=== PATIENT | female | born 1945 | race Caucasian/White ===

== ENCOUNTER 2022-01-23 13:31 | Outpatient (CLI) | payer MEDICARE, OTHER, SELFPAY ==
--- NOTE | 2022-01-23 13:40 | CRLHL7_ITS ---
For Patients: As a result of the Century Cures Act, medical imaging exams and procedure reports are released immediately into your electronic medical record. You may view this report before your referring provider. If you have questions, please contact your health care provider. BILATERAL MAMMOGRAM WITH COMPUTER-AIDED DETECTION TECHNIQUE: CC and MLO views were obtained. These mammographic images have been obtained using full-field digital technique. These mammographic images were interpreted with the benefit of computer-aided detection. COMPARISON FILM: 09/03/2019, 05/02/2017, 09/13/2014. FINDINGS: The breasts are heterogeneously dense, which may obscure small masses IMPRESSION: There is no radiographic evidence for malignancy. ASSESSMENT: BI-RADS Category 1: Negative RECOMMENDATION: Routine screening mammogram in 1 year. A lay language report of this examination will be provided to the patient. Harry Valera M.D. Diagnostic Radiologist [email or web address] THELMA/Dictated by: Harry Valera MD @ 01/24/2022 12:56:00 PM (Electronically Signed)
== END 2022-01-23 13:32 | disposition home or self-care (01) ==
LOC: MAMMO 13:34
PROVIDERS: PCP Internal Medicine; Visit Provider Internal Medicine
DX: Z12.31 Encounter for screening mammogram for malignant neoplasm of breast (principal); R92.8 Other abnormal and inconclusive findings on diagnostic imaging of breast
CPT/HCPCS: 77063; 77067

== ENCOUNTER 2022-11-19 11:39 | Outpatient (CLI) | payer MEDICARE, OTHER, SELFPAY ==
[2022-11-19 15:38] LABS: Basophils Percent Auto 0.2 % (0.0-3.0); Eosinophils Percent Auto 0.5 % (0.0-7.0); Hematocrit 36.4 % (33.0-51.0); Immature Granulocytes Pct Auto 0.3 %; Lymphocytes Percent Auto 22.3 % (20-44); Mean Corpuscular HGB Conc 33 gm/dL (32-36); Mean Corpuscular Hemoglobin 28 pg (26-34); Mean Corpuscular Volume 86 fL (80-100); Monocytes Percent Auto 12.7 % (0.0-11.0); Platelet Count* 328 K/uL (140-440); Red Blood Count 4.25 m/uL (4.00-5.20); White Blood Count* 11.77 K/uL (4.50-11.00)
[2022-11-19 15:47] LABS: Slide Review Reflex No
== END 2022-11-19 11:40 | disposition home or self-care (01) ==
LOC: KYNREF 11:40
PROVIDERS: PCP Internal Medicine; Visit Provider Nurse Practitioner Family
DX: R05.9 Cough, unspecified (principal); R53.83 Other fatigue; M85.80 Other specified disorders of bone density and structure, unspecified site; E78.5 Hyperlipidemia, unspecified
CPT/HCPCS: 85025

== ENCOUNTER 2023-01-30 15:00 | Outpatient (CLI) | payer MEDICARE, OTHER, SELFPAY | END 2023-01-30 15:01 | disposition home or self-care (01) | PROVIDERS: PCP Internal Medicine; Visit Provider Internal Medicine | DX: I10 Essential (primary) hypertension (principal); E78.5 Hyperlipidemia, unspecified | CPT/HCPCS: 80048 ==

== ENCOUNTER 2023-02-19 08:52 | Outpatient (CLI) | payer MEDICARE, OTHER, SELFPAY | END 2023-02-19 08:53 | disposition home or self-care (01) | LOC: NFLDREF 02-20 10:38 | PROVIDERS: PCP Internal Medicine; Referring Provider Internal Medicine; Visit Provider Internal Medicine | DX: I10 Essential (primary) hypertension (principal) | CPT/HCPCS: 80048 ==

== ENCOUNTER 2024-01-07 08:20 | Outpatient (CLI) | payer MEDICARE, OTHER, SELFPAY ==
--- OUTSIDE RECORDS SUMMARY | 2024-01-11 07:51 | XMS_ITS | Data Portability ---
Author Organization [place] - [facility], [employer] Address [address] [place] [address] Assessment Encounter Date Assessment Date Assessment LastModified by Organization Details LastModified Time 12/26/2022 12/26/2022 The patient was informed of her diagnosis as detailed down below. Informed her of treatment options at this time including: Repeat corticosteroid injection to the sinus tarsi with the understanding that this is only for acute symptom relief, casting for an AFO in the from of an Anna Marie Brace, Subiomed devices (size 7.5, small), and possible surgery in the form of a STJ fusion. The patient was informed that I would not recommend surgery at this time and she was trialed on Subiomed devices without modification and noticed an improvement in symptoms to the right foot and low back. The patient will be scheduled in the near future for a trial and modification with possible dispense ment. [email or web address] Not available 12/26/2022 15:51:47 Plan of Treatment Reminders Order Date Submit Date Provider Last Modified By Organization Details Last Modified Time Details Appointments None record ed. Lab None record ed. Referral None record ed. Procedures None record ed. Surgeries None record ed. Imaging None record ed. Medication Orders None record ed. Patient TargetsNo targets recorded. Patient InstructionsNo instructions recorded. Reason for Referral None Reported. 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; Original Code: 891817042 Origi nal Codesystem: SNOMED CT Classificati on: Medical Confirm ation Status: Confirmed Not Available [facility] 3 09:15:03 Osteoarthritis of joint of right ankle and/or foot Active 2020 Osteoarthritis of joint of right ankle and/or foot; Original Code: 9452322670 Orig inal Codesystem: SNOMED CT Classificati on: Medical Confirm ation Status: Confirmed Not Available [facility] 3 09:15:03 Hypercholester olemia Active 2020 Hypercholestero lemia; Original Code: 73915665 Origin al Codesystem: SNOMED CT Classificati on: Medical Confirm ation Status: Confirmed Not Available [facility] 3 09:15:03 Notes:Acquired unequal leg l ength Original Code: 372339395 Original Codesystem: SNOMED CT Classification: Medical Confirmation Status: Confirmed Problem Notes None recorded. Medical Equipment None Reported. Allergies No known drug allergies Medications Name Sig Start Date Stop Date Status Note LastModified by Organization Details LastModified Time azithromyc in 250 mg tablet TAKE 2 TABLETS BY MOUTH ON DAY 1, THEN 1 TABLET DAILY ON DAYS 2-5.* active Not Available Not Available No t Available prednisone 20 mg tablet TAKE ONE TABLET BY MOUTH TWICE DAILY FOR 5 DAYS* active Not Available Not Available No t Available simvastati n 10 mg tablet TAKE HALF TABLET BY MOUTH DAILY* active Not Available Not Available No t Available valsartan 80 mg-hydroch lorothiazi de 12.5 mg tablet TAKE ONE TABLET BY MOUTH ONE TIME DAILY* active Not Available Not Available No t Available simvastati n 5 mg tablet TAKE ONE TABLET BY MOUTH ONE TIME DAILY AT BEDTIME* active Not Available Not Available No t Available albuterol sulfate HFA 90 mcg/actuat ion aerosol inhaler INHALE ONE PUFF BY MOUTH EVERY FOUR TO SIX HOURS NEEDED for cough,whe ezing, or shortness of breath* active Not Available Not Available No t Available amoxicilli n 875 mg-potassi um clavulanat e 125 mg tablet TAKE ONE TABLET BY MOUTH TWICE DAILY FOR 7 DAYS active Not Available Not Available No t Available ascorbic acid (vitamin C) 2020 active Medicatio n Identifie rs: [id number] Co de Medthod: DNUM Orde rStatus: Ordered V isit Identifie rs: [id number] Vis it Identifie r Type: CANDIDO NBR Uniqu e Order Number: [id number] Adminis tration Method: Med PRN Indicator : N Order Status Modifiers Descripti on: Recorded / Home Meds Not Available Not Available Not Available cholecalci ferol (vitamin D3) 2020 active Medicatio n Identifie rs: [id number] Co de Medthod: DNUM Orde rStatus: Ordered V isit Identifie rs: [id number] Vis it Identifie r Type: FIN NBR Uniqu e Order Number: [id number] Adminis tration Method: Med PRN Indicator : N Order Status Modifiers Descripti on: Recorded / Home Meds Not Available Not Available Not Available Flowflex COVID-19 Antigen Home Test kit ADMINISTE R TEST active Not Available Not Available No t Available Paxlovid 300 mg (150 mg x 2)-100 mg tablets in a dose pack TAKE 2 NIRMATREL VIR AND 1 RITONAVIR TABLETS TWICE DAILY FOR 5 DAYS active Not Available Not Available No t Available Vitals Date Recorded Body height Body mass index (BMI) Body weight Provider Name and Address Organization Details Last Updated DateTime 12/26/2022 157.48 cm 23.8 kg/m2 24971.01 g Vivienne MAY - [facility] 12/26/2022 14:32:20 Social History None recorded. Functional Status None recorded. Mental Status None recorded. Family History Nothing Reported. Medical History No medical history recorded. Gynecological HistoryNo gynecological history recorded. Obstetrics History GPAL:G 0 P 0 0 0 0 Past Encounters Encounter ID Performer Location Encounter Start Date Encounter Closed Date Diagnosis/Indication Diagnosis SNOMED-CT Code [id number] Malvin Brock DPM [place] [facility] [address] [facility] [address] [place] [address] 12/26/2022 14:29:41 12/27/2022 09:20:54 Degenerative joint disease of ankle AND/OR foot 63215176 Health Concerns Section Related Observation LastModified by Organization Detai ls LastModified Time None Recorded Concern Status LastModified by Organization Details LastModified Time None Recorded Advance Directives Directive None Recorded Payers Encounter Date Sequence Insurance Name Policy Number Policy Fabian Covered Member ID Fabian Member ID Guarantor Name 12/26/2022 1 [employer] (MEDICARE REPLACEMENT/ ADVANTAGE - PPO) Mya Mary [id number] Mya Mary Notes Date Note Type Note Provider Name and Address Organization Details Recorded Time 12/26/2022 text/html HPI Notes: Patient is a 77 year old female established patient who presents to clinic today for evaluation of right sided foot pain. The patient was previously evaluated by my partner last year in December of 2021 at which time he injected the right subtalar joint secondary to osteoarthritis. The patient mentions that she has had off and on days since that time, however she has noticed progressive worsening of right sided foot pain over the last few months. Patient presents today for discussion of other treatment options. Malvin Brock, [place] [address] [place], [address], [facility] - [facility] 12/26/2022 15:51:50 OBGyn Episode No OBEpisode recorded.
--- OUTSIDE RECORDS SUMMARY | 2024-01-11 07:51 | XMS_ITS | Clinical Summary ---
Author Organization [facility] Address [place], [place] [address] Care Team Providers Care Housecleaner Name Role Phone Elodia Goel MD Primary Care Provider +1- [phone] Allergies No known active allergies Medications Medication Sig Dispensed Refills Start Date End Date Status simvastatin (ZOCOR) 5 mg tablet Take 1 tablet by mouth once daily. 05/21/2019 Active Active Problems Problem Noted Date Diagnosed Date Asymptomatic postmenopausal status (age-related) (natural) 12/17/2006 Pure hypercholesterolemia 12/17/2006 Routine general medical exam ination at a health care facility Overview: Pap: 04/12/06 Mammo:04/05/06 Colonoscopy:unknown Bone density:unknown Lipid: unknown GLUCOSE (mg/dL) Date Value 04/05/2006 89 Immunizations Name Administration Dates Next Due Td (Age >=7 Years) 06/29/2005 Family History Medical History Relation Name Comments Heart Disease Father heart attack Good Health Son 3 Good Health Son 4 Relation Name Status Comments Father Son 1 Maxx Alive Son 2 Harry Alive Son 3 Son 4 Social History Tobacco Use Types Packs/Day Years Used Date Smoking Tobacco: Never Smokeless Tobacco: Never Tobacco Cessation:Counseling Given: Yes Comments:never Alcohol Use Standard Drinks/Week Comments No 0 (1 standard drink = 0.6 oz pur e alcohol) Sex and Gender Information Value Date Recorded Sex Assigned at Not on file Gender Identity Not on file Sexual Orientation Not on file Obstetrics History Last Filed Vital Signs Vital Sign Reading Time Taken Comments Blood Pressure 151/83 08/12/2019 10:09 AM YARN TEXTURING MACHINE OPERATOR to wer Pulse 91 08/12/2019 10:09 AM YARN TEXTURING MACHINE OPERATOR Temperature 36.8 ??C (98.3 ??F) 12/17/2006 1:20 PM CD T Respiratory Rate - - Oxygen Saturation 99% 08/12/2019 10:09 AM YARN TEXTURING MACHINE OPERATOR Inhaled Oxygen Concentration - - Weight 68 kg (150 lb) 08/12/2019 10:09 AM YARN TEXTURING MACHINE OPERATOR Height - - Body Mass Index - - Plan of Treatment Health Maintenance Due Date Last Done Comments Tdap 1955 Depression screening for age 12+ 1956 BMI (ht and wt on same day) for age 18+ 1962 Hepatitis C screening for age 18-79 1962 Zoster (shingles) series for age 50+ (1 of 2) 06/05/19 94 DEXA/DXA scan for age 65+ 2009 Medicare Wellness for age 65+ 2009 Pneumococcal series for age 65+ (1 of 1 - PCV) 009 Tetanus booster 06/29/2015 06/29/2005 COVID-19 vaccine series ( - 2022-24 season) 3 Influenza for age 65+ 03/22/2024 Care Teams Housecleaner Relationship Specialty Start Date End Date Elodia Goel MD [address] [place] [address] PCP - General Internal Medicine 08/12/19
== END 2024-01-07 08:21 | disposition home or self-care (01) ==
LOC: NFLDREF 01-11 07:50
PROVIDERS: PCP Internal Medicine; Referring Provider Internal Medicine; Visit Provider Internal Medicine
DX: M85.80 Other specified disorders of bone density and structure, unspecified site (principal); E78.5 Hyperlipidemia, unspecified; I10 Essential (primary) hypertension
CPT/HCPCS: 80048; 80061; 82306

== ENCOUNTER 2024-01-17 12:31 | Outpatient (CLI) | payer MEDICARE, OTHER, SELFPAY ==
--- OUTSIDE RECORDS SUMMARY | 2024-01-17 12:36 | XMS_ITS | Data Portability ---
Author Organization [place] - [facility], [employer] Address [address] [place] [address] Assessment Encounter Date Assessment Date Assessment LastModified [...] Active 2020 Foot joint pain; Original Code: 974408920 Origi nal Codesystem: SNOMED CT Classificati on: Medical Confirm ation Status: Confirmed Not Available [facility] 3 09:15:03 Osteoarthritis Active 2020 Osteoarthritis; Original Code: 5496190699 Orig inal Codesystem: SNOMED CT Classificati on: Medical Confirm ation Status: Confirmed Not Available [facility] 3 09:15:03 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; Original Code: 743554568 Origi nal Codesystem: SNOMED CT Classificati on: Medical Confirm ation Status: Confirmed Not Available [facility] 3 09:15:03 Osteoarthritis of joint of right ankle and/or foot Active 2020 Osteoarthritis of joint of right ankle and/or foot; Original Code: 5278308087 Orig inal Codesystem: SNOMED CT Classificati on: Medical Confirm ation Status: Confirmed Not Available [facility] 3 09:15:03 Hypercholester olemia Active 2020 Hypercholestero lemia; Original Code: 26728910 Origin al Codesystem: SNOMED CT Classificati on: Medical Confirm ation Status: Confirmed Not Available [facility] 3 09:15:03 Notes:Acquired unequal leg l ength Original Code: 326444189 Original Codesystem: SNOMED CT Classification: Medical Confirmation [...] C) 2020 active Medicatio n Identifie rs: [id number] Co de Medthod: DNUM Orde rStatus: Ordered V isit Identifie rs: [id number] Vis it Identifie r Type: CANDIDO NBR Uniqu e Order Number: [id number] Adminis tration Method: Med PRN Indicator : N Order Status Modifiers Descripti on: Recorded / Home Meds Not Available Not Available Not Available cholecalci ferol (vitamin D3) 2020 active Medicatio n Identifie rs: [id number] Co de Medthod: DNUM Orde rStatus: Ordered V isit Identifie rs: [id number] Vis it Identifie r Type: FIN NBR Uniqu e Order Number: [id number] Adminis tration Method: Med PRN Indicator [...] Updated DateTime 12/26/2022 157.48 cm 23.8 kg/m2 31172.01 g Vivienne MAY - [facility] [...] Diagnosis SNOMED-CT Code [id number] Malvin Brock DPM [place] [facility] [address] [facility] [address] [place] [address] 12/26/2022 14:29:41 12/27/2022 09:20:54 Degenerative joint disease of ankle AND/OR foot 43823093 Health Concerns Section Related Observation LastModified by Organization Detai ls LastModified Time None Recorded Concern Status LastModified by Organization Details LastModified Time None Recorded Advance Directives Directive None Recorded Payers Encounter Date Sequence Insurance Name Policy Number Policy Fabian Covered Member ID Fabian Member ID Guarantor Name 12/26/2022 1 [employer] (MEDICARE REPLACEMENT/ ADVANTAGE - PPO) Mya Mary [id number] Mya Mary Notes Date Note Type Note [...] other treatment options. Malvin Brock, [place] [address] [place], [address], [facility] - [facility] 12/26/2022 15:51:50 OBGyn Episode No OBEpisode recorded.
--- OUTSIDE RECORDS SUMMARY | 2024-01-17 12:36 | XMS_ITS | Clinical Summary ---
Author Organization [facility] Address [place], [place] [address] Care Team Providers Care Health Care Aide Name Role Phone Elodia Goel MD Primary Care Provider +1- [phone] Allergies No known active allergies Medications Medication [...] Comments Blood Pressure 151/83 08/12/2019 10:09 AM CABLE ASSEMBLER to wer Pulse 91 08/12/2019 10:09 AM CABLE ASSEMBLER Temperature 36.8 ??C (98.3 ??F) 12/17/2006 1:20 PM CD T Respiratory Rate - - Oxygen Saturation 99% 08/12/2019 10:09 AM CABLE ASSEMBLER Inhaled Oxygen Concentration - - Weight 68 kg (150 lb) 08/12/2019 10:09 AM CABLE ASSEMBLER Height - - Body Mass Index - [...] Influenza for age 65+ 03/22/2024 Care Teams Health Care Aide Relationship Specialty Start Date End Date Elodia Goel MD [address] [place] [address] PCP - General Internal Medicine 08/12/19
--- NOTE | 2024-01-17 13:00 | CRLHL7_ITS ---
For Patients: As a result of the Century Cures Act, medical imaging exams and procedure reports are released immediately into your electronic medical record. You may view this report before your referring provider. If you have questions, please contact your health care provider. Indication: Chronic cough Technique: CT Chest w/ 75cc [id number] Please note that all CT scans at this facility use dose modulation, iterative reconstruction, and/or weight-based dosing when appropriate to reduce radiation dose to as low as reasonably achievable. Comparison: None Findings: The visualized thyroid gland is within normal limits. Atherosclerotic changes are present. No enlarged mediastinal, hilar or axillary lymph nodes. The breast parenchyma appears normal. Visualized upper abdomen unremarkable. Mild pleural-parenchymal scarring noted in both lung apices. Linear densities are present within the anteromedial right middle lobe. Similar linear densities are located within the anterior segment of the left lower lobe. Mild parenchymal densities within the posterior left lower lobe also noted. No hydrocephalus edema or pleural effusion. No fracture. No pulmonary nodule. No honeycombing. No pneumothorax. Impression: Patchy bilateral areas of parenchymal scarring noted within the right middle lobe and left lower lobe. No acute airspace disease or fibrosis. Please note that all CT scans at this facility use dose modulation, iterative reconstruction, and/or weight-based dosing when appropriate to reduce radiation dose to as low as reasonably achievable. Dictated by Harry Valera MD @ 01/20/2024 6:37:12 AM (Electronically Signed)
== END 2024-01-17 12:32 | disposition home or self-care (01) ==
LOC: CT 12:34
PROVIDERS: PCP Internal Medicine; Visit Provider Internal Medicine
DX: R05.3 Chronic cough (principal)
CPT/HCPCS: 71260; Q9967

== ENCOUNTER 2024-03-20 13:45 | Outpatient (CLI) | payer MEDICARE, OTHER, SELFPAY ==
--- OUTSIDE RECORDS SUMMARY | 2024-03-20 13:49 | XMS_ITS | Data Portability ---
Author Organization [place] - [facility], [employer] Address [address] [facility] [place] [address] Assessment Encounter Date Assessment Date Assessment LastModified [...] a trial and modification with possible dispense [email or web address] [email or web address] Not available 12/26/2022 15:51:47 Plan of Treatment [...] Reason for Referral None Reported. Problems Name Problem SNOMED Code Status Onset Date Resolution Date Notes Provider Name and Address Organization Details Recorded Time Foot joint pain 699369391 Active 2020 Foot joint pain; Original Code: 724500810 Original Codesyste m: SNOMED CT Classi fication: Medical C onfirmati on Status: Confirmed Not Available [facility] 3 09:15:03 Osteoarth ritis 819796356 Active 2020 Osteoarth ritis; Original Code: 356568945 1 Origina l Angie m: SNOMED CT Classi fication: Medical C onfirmati on Status: Confirmed Not Available [facility] 3 09:15:03 Toe joint rigid 614742288 Active 2020 Toe joint rigid; Original Code: 931846880 Original Codesyste m: SNOMED CT Classi fication: Medical C onfirmati on Status: Confirmed Not Available [facility] 3 09:15:03 Osteoarth ritis of joint of right ankle and/or foot 52912642324 9109 Active 2020 Osteoarth ritis of joint of right ankle and/or foot; Original Code: 976433364 8 Origina fam Adams m: SNOMED CT Classi fication: Medical C onfirmati on Status: Confirmed Not Available [facility] 3 09:15:03 Hyperchol esterolem ia 95939465 Active 2020 Hyperchol esterolem ia; Original Code: 45735681 Original Codesyste m: SNOMED CT Classi fication: Medical C onfirmati on Status: Confirmed Not Available [facility] 3 09:15:03 Notes:Acquired unequal leg l ength Original Code: 211782644 Original Codesystem: SNOMED CT Classification: Medical Confirmation [...] C) 2020 active Medicatio n Identifie rs: [id number] Co de Medthod: DNUM Orde rStatus: Ordered V isit Identifie rs: [id number] Vis it Identifie r Type: FIN NBR Uniqu e Order Number: [id number] Adminis tration Method: Med PRN Indicator : N Order Status Modifiers Descripti on: Recorded / Home Meds Not Available Not Available Not Available cholecalci ferol (vitamin D3) 2020 active Medicatio n Identifie rs: [id number] Co de Medthod: DNUM Orde rStatus: Ordered V isit Identifie rs: [id number] Vis it Identifie r Type: FIN NBR Uniqu e Order Number: [id number] Adminis tration Method: Med PRN Indicator [...] Updated DateTime 12/26/2022 157.48 cm 23.8 kg/m2 26480.01 g Vivienne MAY - [facility] 12/26/2022 14:32:20 Social History None recorded. Functional Status None recorded. Mental Status None recorded. Family History Nothing Reported. Medical History No medical history recorded. Gynecological HistoryNo gynecological history recorded. Obstetrics History GPAL:G 0 P 0 0 0 0 Past Encounters Encounter ID Performer Location Encounter Start Date Encounter Closed Date Diagnosis/Indication Diagnosis SNOMED-CT Code Diagnosis ICD10 Code [id number] Malvin Brock DPM [place] [facility] [address] [place] [address] [address] [facility] [place] [address] 12/26/2022 14:29:41 12/27/2022 09:20:54 Degenerative joint disease of ankle AND/OR foot 73854244 M19.079 Health Concerns Section Related Observation LastModified by Organization Detai ls LastModified Time None Recorded Concern Status LastModified by Organization Details LastModified Time None Recorded Advance Directives Directive None Recorded Payers Encounter Date Sequence Insurance Name Policy Number Policy Fabian Covered Member ID Fabian Member ID Guarantor Name 12/26/2022 1 [employer] (MEDICARE REPLACEMENT/ ADVANTAGE - PPO) Mya Mueller Tyra [id number] Mya Mary Notes Date Note Type Note [...] other treatment options. Malvin Brock, [place] [address] [place], [address], [facility] - [facility] 12/26/2022 15:51:50 OBGyn Episode No OBEpisode recorded.
--- OUTSIDE RECORDS SUMMARY | 2024-03-20 13:49 | XMS_ITS | Clinical Summary ---
Author Organization [facility] Address [place], [place] [address] Care Team Providers Care Parts Cleaner Name Role Phone Elodia Goel MD Primary Care Provider +1- [phone] Allergies No known active allergies Medications Medication [...] Comments Blood Pressure 151/83 08/12/2019 10:09 AM FLOSSER to wer Pulse 91 08/12/2019 10:09 AM FLOSSER Temperature 36.8 ??C (98.3 ??F) 12/17/2006 1:20 PM CD T Respiratory Rate - - Oxygen Saturation 99% 08/12/2019 10:09 AM FLOSSER Inhaled Oxygen Concentration - - Weight 68 kg (150 lb) 08/12/2019 10:09 AM FLOSSER Height - - Body Mass Index - [...] Influenza for age 65+ 03/22/2024 Care Teams Parts Cleaner Relationship Specialty Start Date End Date Elodia Goel MD [address] [place] [address] PCP - General Internal Medicine 08/12/19
--- NOTE | 2024-03-20 14:00 | CRLHL7_ITS ---
For Patients: As a result of the Century Cures Act, medical imaging exams and procedure reports are released immediately into your electronic medical record. You may view this report before your referring provider. If you have questions, please contact your health care provider. BILATERAL SCREENING MAMMOGRAM WITH COMPUTER-AIDED DETECTION AND TOMOSYNTHESIS TECHNIQUE: CC and MLO views were obtained. These mammographic images have been obtained using full-field digital technique. These mammographic images were interpreted with the benefit of computer-aided detection. Breast Tomosynthesis was used in this interpretation. COMPARISON FILM: 01/23/22, 09/03/19, 05/02/17. FINDINGS: The breasts are heterogeneously dense, which may obscure small masses IMPRESSION: There is no radiographic evidence for malignancy. ASSESSMENT: BI-RADS Category 1: Negative RECOMMENDATION: Routine screening mammogram in 1 year. A lay language report of this examination will be provided to the patient. Harry Valera M.D. Diagnostic Radiologist [email or web address] THELMA/Dictated by: Harry Valera MD @ 03/20/2024 2:34:00 PM (Electronically Signed)
== END 2024-03-20 13:46 | disposition home or self-care (01) ==
LOC: MAMMO 13:46
PROVIDERS: PCP Internal Medicine; Visit Provider Internal Medicine
DX: Z12.31 Encounter for screening mammogram for malignant neoplasm of breast (principal); R92.2 Inconclusive mammogram
CPT/HCPCS: 77063; 77067

== ENCOUNTER 2025-01-06 08:36 | Outpatient (CLI) | payer OTHER, SELFPAY | END 2025-01-06 08:37 | disposition home or self-care (01) | LOC: NFLDREF 01-10 03:24 | PROVIDERS: PCP Internal Medicine; Referring Provider Internal Medicine; Visit Provider Internal Medicine | DX: I10 Essential (primary) hypertension (principal); E78.5 Hyperlipidemia, unspecified; M85.80 Other specified disorders of bone density and structure, unspecified site | CPT/HCPCS: 80048; 80061; 82306 ==

== ENCOUNTER 2025-01-15 14:12 | Outpatient (CLI) | payer MEDICARE, OTHER, SELFPAY | END 2025-01-15 14:13 | disposition home or self-care (01) | PROVIDERS: PCP Internal Medicine; Visit Provider Internal Medicine | DX: D64.9 Anemia, unspecified (principal) | CPT/HCPCS: 80053; 82607; 82728; 83540; 83550; 84443 ==

== ENCOUNTER 2025-02-11 09:47 | Outpatient (CLI) | payer MEDICARE, OTHER, SELFPAY ==
--- NOTE | 2025-02-11 10:00 | CRLHL7_ITS ---
For Patients: As a result of the Century Cures Act, medical imaging exams and procedure reports are released immediately into your electronic medical record. You may view this report before your referring provider. If you have questions, please contact your health care provider. DXA BONE MINERAL DENSITY STUDY Current height (in): 62.5 Weight (lb): 117 Menopause age: 52 Ethnicity: White. 1. Have you had a previous hip or vertebral fracture? No. 2. Have you had any fractures during your adult life which did not result from significant trauma (e.g., auto accident)? No. 3. Did either of your parents have a hip fracture? No. 4. Do you smoke? No. 5. Have you ever taken Glucocorticoids? No. 6. Do you have rheumatoid arthritis? No. 7. Do you have secondary osteoporosis? No. 8. Do you drink 3 or more alcoholic drinks per day? No. 9. Are you being treated for osteoporosis? No. 10. Have you ever taken any of the following medications: Actonel, Evista, Fosamax, Miacalcin, Reclast, Boniva, Forteo, HRT (i.e. estrogen/hormone therapy), Protelos, Prolia, Vitamin D, Calcium, other ??? please specify. ANSWER: Yes, Vitamin D and Calcium. 11. Do you have any of the following medical conditions: Anorexia or bulimia, asthma or emphysema, end stage renal disease, hyperparathyroidism, any seizure disorders, cancer, inflammatory bowel diseases, hysterectomy, other ??? please specify. ANSWER: None. 12. What was your maximum height (inches)? 64. 13. Do you perform weight bearing exercise regularly? No. 14. Do you regularly consume dairy products? Yes. 15. Do you drink caffeinated beverages? Yes. 16. At what age did your period start? 10. 17. Are you premenopausal? No. 18. How many full term pregnancies have you had? 2. 19. Have you ever missed your period for more than 6 months in a row (not including or menopause)? No. TECHNIQUE: Bone mineral density study was performed using the [employer]. FINDINGS: The results of the study expressed as bone mineral density (BMD) are as follows: Lumbar spine L1 to L4: BMD: 0.933 g/cm2. T-score: -1.0. Z-score: 1.7. Neck Left: BMD: 0.694 g/cm2. T-score: -1.4. Z-score: 0.9. Right: BMD: 0.0.728 g/cm2. T-score: -1.1. Z-score: 1.2. Total Left: BMD: 0.871 g/cm2. T-score: -0.6. Z-score: 1.5. Right: BMD: 0.904 g/cm2. T-score: -0.3. Z-score: 1.8. IMPRESSION: Osteopenia. COMPARISON: Compared with scan of 09/03/2019, the bone mineral density has increased by 0.5 percent at the spine and decreased by 5.6 percent at the hip. Compared with scan of 09/03/2019, the bone mineral density has decreased by 5.1 percent at the spine and decreased by 2.7 percent at the hip. FRAX 10-year Fracture Risk Major Osteoporotic Fracture: 12 percent Hip Fracture: 2.9 percent Reported Risk Factors: [place] () Neck BMD=0.694, BMI=21.1. Sola Horowitz M.D. Diagnostic Radiologist [email or web address] DW/Dictated by: Sola Horowitz MD @ 02/15/2025 7:12:00 AM (Electronically Signed)
== END 2025-02-11 09:48 | disposition home or self-care (01) ==
LOC: RAD 09:50
PROVIDERS: PCP Internal Medicine; Visit Provider Internal Medicine
DX: M85.88 Other specified disorders of bone density and structure, other site (principal); M85.89 Other specified disorders of bone density and structure, multiple sites
CPT/HCPCS: 77080

== ENCOUNTER 2025-05-12 09:33 | Outpatient (CLI) | payer MEDICARE, OTHER, SELFPAY ==
--- NOTE | 2025-05-12 10:00 | CRLHL7_ITS ---
For Patients: As a result of the Century Cures Act, medical imaging exams and procedure reports are released immediately into your electronic medical record. You may view this report before your referring provider. If you have questions, please contact your health care provider. Indication: DISORDER OF ADRENAL GLAND Technique: Noncontrast CT abdomen Please note that all CT scans at this facility use dose modulation, iterative reconstruction, and/or weight-based dosing when appropriate to reduce radiation dose to as low as reasonably achievable. Comparison: None Findings: Scarring in both lung bases, mild. No pleural effusion. Noncontrast enhanced liver appears unremarkable. Small stone in the gallbladder. No biliary obstruction. Hyperdense material layering dependently in the stomach. Spleen normal. Mild thickening of the left adrenal gland. Normal right adrenal gland. No adrenal nodule. No renal stone. No hydronephrosis. Atherosclerotic changes. Pancreas unremarkable. No bowel obstruction or free air. No adenopathy. Degenerative disc disease. No fracture. Impression: Mild thickening of the left adrenal gland. No evidence of adrenal nodule. Please note that all CT scans at this facility use dose modulation, iterative reconstruction, and/or weight-based dosing when appropriate to reduce radiation dose to as low as reasonably achievable. Dictated by Harry Valera MD @ 05/12/2025 12:41:56 PM (Electronically Signed)
[2025-05-12 10:08] LABS: Creatinine* 1.0 mg/dL (0.5-1.5); Estimated Glomerular Filt Rate 57 ml/min
== END 2025-05-12 09:34 | disposition home or self-care (01) ==
LOC: CT 09:34
PROVIDERS: PCP Internal Medicine; Visit Provider Internal Medicine
DX: E27.8 Other specified disorders of adrenal gland (principal)
CPT/HCPCS: 36415; 74150; 82565